=== PATIENT | female | born 1945 | race Caucasian/White ===

== ENCOUNTER → 2016-06-02 | Outpatient (CLI) | payer OTHER, BC ==
[~2016-06-02] MED LIST: BELVIQ10 MG PO; COZAAR100 MG PO; GLIPIZIDE5 MG PO; HYDROCHLOROTHIA25 MG PO
== END | disposition home or self-care (01) ==
LOC: CT 12:35
PROC: BW24ZZZ Computerized Tomography (CT Scan) of Chest and Abdomen (ICD-10-PCS; principal; 2016-06-02)
DX: R04.2 Hemoptysis (principal)

== ENCOUNTER 2018-10-27 09:04 | Emergency (ER) | payer OTHER, BC ==
[~2018-10-27] VITALS: Ht 170.2 cm; Wt 73.9 kg
[2018-10-27 09:19] VITALS: Ht 170.2 cm; Wt 73.9 kg
[2018-10-27 10:47] LABS: BASOPHIL % 0.1 % (0-2); PLATELET COUNT 229 x10^3mcL (130-400); RED CELL DISTRIBUTION WIDTH 12.8 % (11.5-14.5)
[2018-10-27 11:19] LABS: C REACTIVE PROTEIN 2.8 mg/dL (<=0.9); CALCIUM 8.8 mg/dL (8.5-10.1); CARBON DIOXIDE 24.6 mmol/L (21-32); CHLORIDE SERUM 105 mmol/L (98-107); CREATININE SERUM 1.5 mg/dL (0.6-1.0); GLUCOSE SERUM 125 mg/dL (74-106); SODIUM SERUM 141 mmol/L (136-145)
[2018-10-27 12:58] VITALS: BP 122/74
== END 2018-10-27 12:58 | disposition home or self-care (01) ==
LOC: ED 09:04
PROVIDERS: Emergency Medicine
DX: M79.672 Pain in left foot (principal); M19.90 Unspecified osteoarthritis, unspecified site; R22.42 Localized swelling, mass and lump, left lower limb; I10 Essential (primary) hypertension; E11.9 Type 2 diabetes mellitus without complications; Z88.1 Allergy status to other antibiotic agents; Z88.8 Allergy status to other drugs, medicaments and biological substances; Z88.6 Allergy status to analgesic agent
CPT/HCPCS: 36415; Q0092